=== PATIENT | female | born 1985 ===

== ENCOUNTER → 2021-04-15 | Outpatient (CLI) | payer SELFPAY ==
[~2021-04-15] MED LIST: MULVITMINE; ONDA4ODT MM; PROM25 PO
[2021-04-18 13:11] LABS: HPV 16 Negative (Negative); HPV 18 Negative (Negative); HPV OTHER HR TYPES Negative (Negative)
== END | disposition home or self-care (01) ==
LOC: LAB SHORT 15:45 → LAB 15:45
PROVIDERS: Nurse Practitioner Family
DX: Z01.419 Encounter for gynecological examination (general) (routine) without abnormal findings (principal)
CPT/HCPCS: 87624; G0123